=== PATIENT | male | born 1960 | race Caucasian/White ===

== ENCOUNTER → 2017-11-28 | Outpatient (CLI) | payer OTHER ==
[~2017-11-28] MED LIST: OMNIPAQUE 350 MG/ML, 100ML BOTTLE ONE
== END | disposition home or self-care (01) ==
LOC: RAD 14:08
PROVIDERS: ATTEND Internal Medicine Cardiovascular Disease
DX: I71.2 Thoracic aortic aneurysm, without rupture (principal)
CPT/HCPCS: 71275; Q9967

== ENCOUNTER 2017-12-15 09:14 | Day surgery (SDC) | payer OTHER ==
[~2017-12-15] VITALS: Ht 182.9 cm; Wt 79.1 kg
[2017-12-15] MEDS ORDERED: SODIUM CHLORIDE 0.9% 1,000 ML IV ONE (10:05)
[2017-12-15] MEDS ORDERED: DICL100T PO (10:08)
[2017-12-15] MEDS ORDERED: PROB500T22 PO (10:08)
[2017-12-15] MEDS ORDERED: HYDR-3240 PO (10:08)
[2017-12-15] MEDS ORDERED: VENL150T PO (10:08)
[2017-12-15 10:12] VITALS: BP 116/85
[2017-12-15] MEDS ORDERED: ASPIRIN 325 MG TABLET EC PO ONE (10:30)
[2017-12-15] MEDS ORDERED: TICAGRELOR 90 MG TABLET ONE (10:45)
[2017-12-15] MEDS ORDERED: BIVALIRUDIN 250 MG ONE (10:45)
[2017-12-15] MEDS ORDERED: VERAPAMIL 2.5 MG/ML, 2ML ONE (10:45)
[2017-12-15] MEDS ORDERED: MIDAZOLAM 1 MG/ML, 5ML ONE (10:45)
[2017-12-15] MEDS ORDERED: FENTANYL PF 100 MCG/2ML ONE (10:45)
[2017-12-15] MEDS ORDERED: HEPARIN 1,000 UNITS/ML, 10ML ONE (10:45)
== END 2017-12-15 13:54 | disposition home or self-care (01) ==
LOC: CACL 09:14
PROVIDERS: ATTEND Internal Medicine Cardiovascular Disease
DX: I25.10 Atherosclerotic heart disease of native coronary artery without angina pectoris (principal); I35.0 Nonrheumatic aortic (valve) stenosis; I71.9 Aortic aneurysm of unspecified site, without rupture; I10 Essential (primary) hypertension; Z88.0 Allergy status to penicillin
CPT/HCPCS: 93458; 99156; C1769; C1894; J1644; J2250; J3010; Q9967; J0583

== ENCOUNTER 2017-12-29 04:29 | Inpatient (IN) | payer OTHER ==
[2017-12-28 13:36] LABS: BASOPHILS # (AUTO) 0.16 x10^3/uL (0-0.1); BASOPHILS % (AUTO) 2 % (0-1); EOSINOPHILS # (AUTO) 0.93 x10^3/uL (0-0.4); EOSINOPHILS % (AUTO) 10 % (1-7); LYMPHOCYTES # (AUTO) 2.93 x10^3/uL (1-3.4); LYMPHOCYTES % (AUTO) 31 % (22-44); MD NO; MEAN CORPUSCULAR HEMOGLOBIN 33.9 pg (27.5-34.5); MEAN CORPUSCULAR HGB CONC 34.7 g/dL (33.2-36.2); MEAN CORPUSCULAR VOLUME 97.8 fL (81-97); MEAN PLATELET VOLUME 7.7 fL (7.4-10.4); MONOCYTES # (AUTO) 0.64 x10^3/uL (0.2-0.8); MONOCYTES % (AUTO) 7 % (2-9); NEUTROPHILS # (AUTO) 4.82 x10^3/uL (1.8-6.8); NEUTROPHILS % (AUTO) 51 % (42-75); PLATELET COUNT 346 x10^3/uL (130-400); RED BLOOD COUNT 4.04 x10^6/uL (4.38-5.82); RED CELL DISTRIBUTION WIDTH 13.1 % (9.4-14.8)
[2017-12-28 13:38] LABS: MICROSCOPIC NOT IND
[2017-12-28 13:49] LABS: ALANINE AMINOTRANSFERASE 26 U/L (12-78); ALBUMIN 3.5 g/dL (3.4-5.0); ANION GAP 7 mmol/L (5-15); CALCIUM 8.8 mg/dL (8.5-10.1); CHLORIDE 108 mmol/L (98-107); CREATININE 0.86 mg/dL (0.7-1.3)
[2017-12-28 13:51] LABS: ALKALINE PHOSPHATASE 134 U/L (45-117); BILIRUBIN,TOTAL 0.5 mg/dL (0.2-1.0); TOTAL PROTEIN 7.6 g/dL (6.4-8.2)
[2017-12-28 14:02] LABS: INTERNATIONAL NORMALIZED RATIO 0.93 (0.93-1.1); PROTHROMBIN TIME 9.7 Seconds (9.6-11.5)
[2017-12-28 14:29] LABS: HEMOGLOBIN A1C 5.4 % (4.2-6.3)
[~2017-12-29] VITALS: Ht 182.9 cm; Wt 78.6 kg
[~2017-12-29 04:29] MED LIST changes: +ACYC-114 PO; +ALPR-475 PO; +DICL100T PO; +HYDR-3240 PO; -OMNIPAQUE 350 MG/ML, 100ML BOTTLE ONE; +PROB500T22 PO; +VENL150T PO
[2017-12-29 05:02] VITALS: BP_SYST 116; BP_SYST 118; BP_DIAS 78
[2017-12-29] MEDS: SODIUM CHLORIDE FLUSH 10ML SYR IVF SCH ×3 (05:29→19:46)
[2017-12-29] MEDS: MUPIROCIN OINT 2%, 22GM TP SCH ×2 (05:29→20:29)
[2017-12-29] MEDS ORDERED: INSULIN LISPRO 100 UNITS/ML, PEN SQ-INSULIN SCH (05:30)
[2017-12-29] MEDS ORDERED: CHLORHEXIDINE 15 ML BOTTLE MM SCH ×2 (05:30)
[2017-12-29] MEDS ORDERED: DO NOT GIVE MC SCH (05:30)
[2017-12-29] MEDS ORDERED: CHLORHEXIDINE 15 ML UDC MM SCH (05:30)
[2017-12-29] MEDS ORDERED: MIDAZOLAM 10MG/2 ML ONE (07:12)
[2017-12-29] MEDS ORDERED: FENTANYL PF 250 MCG/5ML ONE ×6 (07:12→09:19)
[2017-12-29] MEDS ORDERED: CALCIUM CHLORIDE 10%, 10ML SYR ONE (07:14)
[2017-12-29] MEDS ORDERED: MANNITOL PMX 20% 500 ML IVPB PRN (07:30)
[2017-12-29] MEDS ORDERED: ALBUMIN HUMAN 5% 500 ML IV PRN (07:30)
[2017-12-29] MEDS ORDERED: POTASSIUM CHLORIDE 80 MEQ, SODIUM BICARBONATE 8.4% 10 MEQ, MAGNESIUM SULFATE 0.5 GM, LI... IV PRN (07:30)
[2017-12-29] MEDS ORDERED: EPINEPHRINE 2 MG in SODIUM CHLORIDE 0.9% 248 ML IV SCH (07:30)
[2017-12-29] MEDS ORDERED: REGULAR INSULIN 62.5 UNITS in SODIUM CHLORIDE 0.9% 249.375 ML IV PRN ×2 (07:30→11:27)
[2017-12-29] MEDS ORDERED: PHENYLEPHRINE 10 MG in SODIUM CHLORIDE 0.9% 249 ML IV PRN ×2 (07:30→11:27)
[2017-12-29] MEDS ORDERED: VANCOMYCIN 1,200 MG in SODIUM CHLORIDE 0.9% 250 ML IV PRN (07:30)
[2017-12-29] MEDS ORDERED: DEXMEDETOMIDINE 200 MCG in SODIUM CHLORIDE 0.9% 48 ML IV SCH (07:30)
[2017-12-29] MEDS ORDERED: KETAMINE 10 MG/ML, 20ML ONE (08:44)
[2017-12-29] MEDS: DOCUSATE 100 MG CAPSULE PO SCH ×2 (09:00→19:48)
[2017-12-29] MEDS ORDERED: ROCURONIUM 10MG/ML,5ML ONE ×4 (09:18)
[2017-12-29] MEDS ORDERED: VASOPRESSIN 20 UNIT/ML, 1ML ONE (09:27)
[2017-12-29] MEDS ORDERED: PROTAMINE SULFATE 10 MG/ML, 25ML ONE ×2 (09:28)
[2017-12-29] MEDS ORDERED: DEXMEDETOMIDINE 200 MCG in SODIUM CHLORIDE 0.9% 48 ML IV PRN (11:27)
[2017-12-29] MEDS ORDERED: SODIUM CHLORIDE 0.9% 1,000 ML IV PRN (11:27)
[2017-12-29] MEDS ORDERED: VASOPRESSIN 50 UNIT in SODIUM CHLORIDE 0.9% 247.5 ML IV PRN (11:27)
[2017-12-29] MEDS ORDERED: DOBUTAMINE 250 MG in SODIUM CHLORIDE 0.9% 230 ML IV PRN (11:27)
[2017-12-29] MEDS ORDERED: NITROGLYCERIN/D5W PMX 250 ML IV PRN (11:27)
[2017-12-29] MEDS ORDERED: GLUCAGON 1 MG IM PRN (11:30)
[2017-12-29] MEDS ORDERED: morphine SULFATE 10 MG/ML, 1ML IVPush PRN (11:30)
[2017-12-29] MEDS ORDERED: DEXTROSE 4 GM TAB.CHEW PO PRN (11:30)
[2017-12-29] MEDS ORDERED: ACETAMINOPHEN 325 MG TABLET PO PRN (11:30)
[2017-12-29] MEDS ORDERED: FENTANYL PF 100 MCG/2ML IVPush PRN (11:30)
[2017-12-29] MEDS ORDERED: ONDANSETRON 2MG/ML, 2ML IVPush PRN (11:30)
[2017-12-29] MEDS ORDERED: LACTATED RINGERS 1,000 ML IV PRN (11:30)
[2017-12-29] MEDS ORDERED: BISACODYL 5 MG EC TABLET PO PRN (11:30)
[2017-12-29] MEDS ORDERED: DEXTROSE 50%, 50ML SYRINGE IVPush PRN (11:30)
[2017-12-29] MEDS ORDERED: INSULIN REGULAR 100 UNITS/ML, 3ML VIAL IVPush PRN (11:30)
[2017-12-29] MEDS ORDERED: BISACODYL 10 MG SUPP PR PRN (11:30)
[2017-12-29] MEDS ORDERED: PROCHLORPERAZINE 5 MG/ML, 2ML IVPush PRN (11:30)
[2017-12-29] MEDS ORDERED: SODIUM BICARB 8.4%, 50ML SYRINGE IV PRN (11:30)
[2017-12-29] MEDS ORDERED: ACETAMINOPHEN 650 MG SUPP PR PRN (11:30)
[2017-12-29] MEDS ORDERED: EPINEPHRINE 2 MG in SODIUM CHLORIDE 0.9% 248 ML IV PRN (11:30)
[2017-12-29] MEDS ORDERED: SODIUM BICARBONATE 1 MEQ/ML, 50ML VIAL ONE (11:39)
[2017-12-29] MEDS ORDERED: LIDOCAINE 2% 100MG/5ML SYRINGE ONE (11:40)
[2017-12-29] MEDS ORDERED: methylPREDNISolone SOD SUCC 125 MG/2 ML ONE (11:40)
[2017-12-29] MEDS ORDERED: HEPARIN 1,000 UNITS/ML, 30ML ONE (11:40)
[2017-12-29] MEDS ORDERED: ALBUMIN HUMAN 25% 50 ML ONE (11:40)
[2017-12-29] MEDS: WARFARIN MODERAT DOSE PROTOCOL XX SCH (12:00)
[2017-12-29 12:07] LABS: GLUCOSE BY BLOOD GAS ANALYZER 106 mg/dL (70-110); HEMOGLOBIN BY BLOOD GAS ANALYZ 10.8 g/dL (14.0-18.0); POTASSIUM BY BLOOD GAS ANALYZR 4.1 mmol/L (3.6-5.5)
[2017-12-29 12:19] LABS: INTERNATIONAL NORMALIZED RATIO 1.25 (0.93-1.1); PROTHROMBIN TIME 12.9 Seconds (9.6-11.5)
[2017-12-29] MEDS: MAGNESIUM SULFATE 1 GM in SODIUM CHLORIDE 0.9% 50 ML IVPB SCH (12:26)
[2017-12-29] MEDS: KSCALE TO 4.5 IV SCH ×2 (12:26→18:12)
[2017-12-29] MEDS: INSULIN LISPRO 100 UNITS/ML, PEN SQ-INSULIN SCH ×2 (12:52→20:12)
[2017-12-29] MEDS ORDERED: ALBUTEROL SULFATE 2.5 MG/3 ML NPPB PRN (17:00)
[2017-12-29] MEDS: OXYcodone IR 5MG TABLET PO PRN (17:38)
[2017-12-29] MEDS: HYDROcodone/APAP 10/325 MG TABLET PO PRN ×2 (19:42→23:39)
[2017-12-29] MEDS: MUPIROCIN OINT 2%, 22GM NAS SCH (19:45)
[2017-12-29] MEDS: VANCOMYCIN 1,200 MG in SODIUM CHLORIDE 0.9% 250 ML IVPB SCH (19:46)
[2017-12-30] MEDS: KSCALE TO 4.5 IV SCH ×2 (00:12→05:33)
[2017-12-30] MEDS: HYDROcodone/APAP 10/325 MG TABLET PO PRN ×3 (04:08→21:16)
[2017-12-30 04:46] LABS: BASOPHILS % (AUTO) 1 % (0-1); EOSINOPHILS % (AUTO) 0 % (1-7); INTERNATIONAL NORMALIZED RATIO 0.99 (0.93-1.1); LYMPHOCYTES # (AUTO) 1.53 x10^3/uL (1-3.4); LYMPHOCYTES % (AUTO) 13 % (22-44); MD NO; MEAN CORPUSCULAR HEMOGLOBIN 33.4 pg (27.5-34.5); MEAN CORPUSCULAR HGB CONC 34.6 g/dL (33.2-36.2); MEAN CORPUSCULAR VOLUME 96.6 fL (81-97); MEAN PLATELET VOLUME 7.8 fL (7.4-10.4); MONOCYTES % (AUTO) 6 % (2-9); NEUTROPHILS # (AUTO) 9.08 x10^3/uL (1.8-6.8); NEUTROPHILS % (AUTO) 80 % (42-75); PLATELET COUNT 163 x10^3/uL (130-400); PROTHROMBIN TIME 10.3 Seconds (9.6-11.5); RED BLOOD COUNT 2.81 x10^6/uL (4.38-5.82); RED CELL DISTRIBUTION WIDTH 13.1 % (9.4-14.8)
[2017-12-30 04:49] LABS: ALBUMIN 2.7 g/dL (3.4-5.0); ANION GAP 7 mmol/L (5-15); CALCIUM 7.4 mg/dL (8.5-10.1); CHLORIDE 114 mmol/L (98-107); CREATININE 0.69 mg/dL (0.7-1.3)
[2017-12-30] MEDS: OXYcodone IR 5MG TABLET PO PRN ×2 (07:07→09:59)
[2017-12-30] MEDS: INSULIN LISPRO 100 UNITS/ML, PEN SQ-INSULIN SCH ×4 (07:12→21:00)
[2017-12-30] MEDS: MUPIROCIN OINT 2%, 22GM NAS SCH ×2 (07:52→21:27)
[2017-12-30] MEDS: WARFARIN BIOPROSTHETIC VALVE PROTOCOL 2-3 XX SCH (07:52)
[2017-12-30] MEDS: VANCOMYCIN 1,200 MG in SODIUM CHLORIDE 0.9% 250 ML IVPB SCH (07:52)
[2017-12-30] MEDS: MUPIROCIN OINT 2%, 22GM TP SCH ×2 (07:52→21:00)
[2017-12-30] MEDS: DOCUSATE 100 MG CAPSULE PO SCH ×2 (08:13→21:19)
[2017-12-30] MEDS: ASPIRIN 81 MG TABLET EC PO SCH (08:13)
[2017-12-30] MEDS ORDERED: VENLAFAXINE 75 MG CAP ER ONE (08:15)
[2017-12-30] MEDS ORDERED: KETOROLAC 30 MG/1 ML IVPush PRN (08:30)
[2017-12-30] MEDS ORDERED: MAGNESIUM HYDROXIDE 8%, 30ML UDC PO PRN (08:30)
[2017-12-30] MEDS: VENLAFAXINE 75 MG CAP ER PO SCH ×2 (10:01→21:19)
[2017-12-30] MEDS: WARFARIN MODERAT DOSE PROTOCOL XX SCH (12:00)
[2017-12-30 12:56] VITALS: BP 119/70
[2017-12-30] MEDS: SODIUM CHLORIDE FLUSH 10ML SYR IVF SCH ×3 (13:00→21:18)
[2017-12-30] MEDS: MAGNESIUM SULFATE 1 GM in SODIUM CHLORIDE 0.9% 50 ML IVPB SCH (13:22)
[2017-12-30 15:14] VITALS: BP 145/78
[2017-12-30] MEDS ORDERED: WARFARIN 7.5 MG TABLET PO-COUM SCH (18:00)
[2017-12-30 18:50] VITALS: BP 124/72
[2017-12-31 01:16] VITALS: BP 142/75
[2017-12-31] MEDS: HYDROcodone/APAP 10/325 MG TABLET PO PRN ×4 (03:51→21:09)
[2017-12-31 05:16] LABS: INTERNATIONAL NORMALIZED RATIO 1.09 (0.93-1.1); PROTHROMBIN TIME 11.2 Seconds (9.6-11.5)
[2017-12-31 05:18] LABS: ANION GAP 6 mmol/L (5-15); CALCIUM 7.6 mg/dL (8.5-10.1); CHLORIDE 108 mmol/L (98-107)
[2017-12-31 05:28] LABS: BASOPHILS # (AUTO) 0.06 x10^3/uL (0-0.1); BASOPHILS % (AUTO) 1 % (0-1); EOSINOPHILS # (AUTO) 0.15 x10^3/uL (0-0.4); EOSINOPHILS % (AUTO) 2 % (1-7); LYMPHOCYTES # (AUTO) 1.33 x10^3/uL (1-3.4); LYMPHOCYTES % (AUTO) 16 % (22-44); MD NO; MEAN CORPUSCULAR HEMOGLOBIN 34.1 pg (27.5-34.5); MEAN CORPUSCULAR HGB CONC 35.2 g/dL (33.2-36.2); MEAN PLATELET VOLUME 8.1 fL (7.4-10.4); MONOCYTES # (AUTO) 0.62 x10^3/uL (0.2-0.8); MONOCYTES % (AUTO) 7 % (2-9); NEUTROPHILS # (AUTO) 6.43 x10^3/uL (1.8-6.8); NEUTROPHILS % (AUTO) 75 % (42-75); PLATELET COUNT 127 x10^3/uL (130-400); RED BLOOD COUNT 2.62 x10^6/uL (4.38-5.82); RED CELL DISTRIBUTION WIDTH 13.1 % (9.4-14.8)
[2017-12-31] MEDS: INSULIN LISPRO 100 UNITS/ML, PEN SQ-INSULIN SCH ×4 (07:00→21:00)
[2017-12-31 07:20] VITALS: BP 119/69
[2017-12-31] MEDS: FUROSEMIDE 20 MG/2 ML IV SCH (08:21)
[2017-12-31] MEDS: VENLAFAXINE 75 MG CAP ER PO SCH ×2 (08:22→21:09)
[2017-12-31] MEDS: LISINOPRIL 5 MG TABLET PO SCH (08:22)
[2017-12-31] MEDS: POTASSIUM CHLORIDE 10 MEQ TABLET.ER PO SCH (08:22)
[2017-12-31] MEDS: DOCUSATE 100 MG CAPSULE PO SCH ×2 (08:22→21:09)
[2017-12-31] MEDS: ASPIRIN 81 MG TABLET EC PO SCH (08:23)
[2017-12-31] MEDS: MUPIROCIN OINT 2%, 22GM NAS SCH ×2 (08:23→21:08)
[2017-12-31] MEDS: MUPIROCIN OINT 2%, 22GM TP SCH ×2 (09:00→21:00)
[2017-12-31] MEDS: SODIUM CHLORIDE FLUSH 10ML SYR IVF SCH ×4 (09:00→21:09)
[2017-12-31] MEDS: WARFARIN BIOPROSTHETIC VALVE PROTOCOL 2-3 XX SCH (09:00)
[2017-12-31] MEDS: WARFARIN MODERAT DOSE PROTOCOL XX SCH (12:00)
[2017-12-31] MEDS: MAGNESIUM SULFATE 1 GM in SODIUM CHLORIDE 0.9% 50 ML IVPB SCH (13:03)
[2017-12-31 13:40] VITALS: BP 117/70
[2017-12-31] MEDS ORDERED: WARFARIN 7.5 MG TABLET PO-COUM SCH (18:00)
[2017-12-31 19:12] VITALS: BP 116/63
[2017-12-31 23:48] VITALS: BP 126/68
[2018-01-01] MEDS: HYDROcodone/APAP 10/325 MG TABLET PO PRN ×3 (04:18→19:38)
[2018-01-01 04:56] LABS: BASOPHILS # (AUTO) 0.05 x10^3/uL (0-0.1); BASOPHILS % (AUTO) 1 % (0-1); EOSINOPHILS # (AUTO) 0.39 x10^3/uL (0-0.4); EOSINOPHILS % (AUTO) 5 % (1-7); LYMPHOCYTES # (AUTO) 1.66 x10^3/uL (1-3.4); LYMPHOCYTES % (AUTO) 20 % (22-44); MD NO; MEAN CORPUSCULAR HEMOGLOBIN 34.7 pg (27.5-34.5); MEAN CORPUSCULAR HGB CONC 35.6 g/dL (33.2-36.2); MEAN CORPUSCULAR VOLUME 97.4 fL (81-97); MEAN PLATELET VOLUME 7.7 fL (7.4-10.4); MONOCYTES # (AUTO) 0.61 x10^3/uL (0.2-0.8); MONOCYTES % (AUTO) 7 % (2-9); NEUTROPHILS % (AUTO) 68 % (42-75); PLATELET COUNT 140 x10^3/uL (130-400); RED BLOOD COUNT 2.55 x10^6/uL (4.38-5.82); RED CELL DISTRIBUTION WIDTH 12.9 % (9.4-14.8)
[2018-01-01 05:00] LABS: INTERNATIONAL NORMALIZED RATIO 1.41 (0.93-1.1); PROTHROMBIN TIME 14.4 Seconds (9.6-11.5)
[2018-01-01 05:02] LABS: ANION GAP 5 mmol/L (5-15); CALCIUM 7.8 mg/dL (8.5-10.1); CHLORIDE 106 mmol/L (98-107)
[2018-01-01] MEDS: INSULIN LISPRO 100 UNITS/ML, PEN SQ-INSULIN SCH (07:00)
[2018-01-01 07:30] VITALS: BP 123/68
[2018-01-01] MEDS: WARFARIN BIOPROSTHETIC VALVE PROTOCOL 2-3 XX SCH (07:31)
[2018-01-01] MEDS: MUPIROCIN OINT 2%, 22GM TP SCH ×2 (07:31→21:00)
[2018-01-01] MEDS: ASPIRIN 81 MG TABLET EC PO SCH (08:01)
[2018-01-01] MEDS: VENLAFAXINE 75 MG CAP ER PO SCH ×2 (08:01→22:33)
[2018-01-01] MEDS: MUPIROCIN OINT 2%, 22GM NAS SCH ×2 (08:01→22:33)
[2018-01-01] MEDS: FUROSEMIDE 20 MG/2 ML IV SCH (08:01)
[2018-01-01] MEDS: LISINOPRIL 5 MG TABLET PO SCH (08:01)
[2018-01-01] MEDS: POTASSIUM CHLORIDE 10 MEQ TABLET.ER PO SCH (08:02)
[2018-01-01] MEDS: DOCUSATE 100 MG CAPSULE PO SCH ×2 (08:02→21:00)
[2018-01-01] MEDS: SODIUM CHLORIDE FLUSH 10ML SYR IVF SCH ×4 (08:03→22:34)
[2018-01-01] MEDS ORDERED: POTASSIUM CHLORIDE 20 MEQ TAB.ER.PRT PO ONE (09:00)
[2018-01-01] MEDS: WARFARIN MODERAT DOSE PROTOCOL XX SCH (12:00)
[2018-01-01 14:30] VITALS: BP 132/70
[2018-01-01] MEDS ORDERED: WARFARIN 5 MG TABLET PO-COUM ONE (18:00)
[2018-01-01] MEDS ORDERED: DIPHENHYDRAMINE 50 MG/ML, 1ML ONE (18:52)
[2018-01-01 19:14] VITALS: BP 124/68
[2018-01-02 01:26] VITALS: BP 113/66
[2018-01-02] MEDS: HYDROcodone/APAP 10/325 MG TABLET PO PRN ×2 (04:23→09:41)
[2018-01-02 05:09] LABS: INTERNATIONAL NORMALIZED RATIO 1.93 (0.93-1.1); PROTHROMBIN TIME 19.6 Seconds (9.6-11.5)
[2018-01-02 05:11] LABS: ANION GAP 6 mmol/L (5-15); CHLORIDE 105 mmol/L (98-107)
[2018-01-02 05:12] LABS: BASOPHILS # (AUTO) 0.05 x10^3/uL (0-0.1); BASOPHILS % (AUTO) 1 % (0-1); CREATININE 0.51 mg/dL (0.7-1.3); EOSINOPHILS # (AUTO) 0.61 x10^3/uL (0-0.4); EOSINOPHILS % (AUTO) 9 % (1-7); LYMPHOCYTES # (AUTO) 1.43 x10^3/uL (1-3.4); LYMPHOCYTES % (AUTO) 20 % (22-44); MD NO; MEAN CORPUSCULAR HEMOGLOBIN 33.6 pg (27.5-34.5); MEAN CORPUSCULAR HGB CONC 34.8 g/dL (33.2-36.2); MEAN CORPUSCULAR VOLUME 96.7 fL (81-97); MEAN PLATELET VOLUME 7.8 fL (7.4-10.4); MONOCYTES # (AUTO) 0.54 x10^3/uL (0.2-0.8); MONOCYTES % (AUTO) 8 % (2-9); NEUTROPHILS # (AUTO) 4.46 x10^3/uL (1.8-6.8); NEUTROPHILS % (AUTO) 63 % (42-75); PLATELET COUNT 168 x10^3/uL (130-400); RED BLOOD COUNT 2.71 x10^6/uL (4.38-5.82); RED CELL DISTRIBUTION WIDTH 12.8 % (9.4-14.8)
[2018-01-02 06:50] VITALS: BP 117/70
[2018-01-02] MEDS: WARFARIN BIOPROSTHETIC VALVE PROTOCOL 2-3 XX SCH (09:00)
[2018-01-02] MEDS: DOCUSATE 100 MG CAPSULE PO SCH (09:04)
[2018-01-02] MEDS: WARFARIN MODERAT DOSE PROTOCOL XX SCH (09:06)
[2018-01-02] MEDS: LISINOPRIL 5 MG TABLET PO SCH (09:42)
[2018-01-02] MEDS: VENLAFAXINE 75 MG CAP ER PO SCH ×2 (09:42→20:49)
[2018-01-02] MEDS: ASPIRIN 81 MG TABLET EC PO SCH (09:43)
[2018-01-02] MEDS: POTASSIUM CHLORIDE 10 MEQ TABLET.ER PO SCH (09:43)
[2018-01-02] MEDS: SODIUM CHLORIDE FLUSH 10ML SYR IVF SCH ×2 (09:44→20:49)
[2018-01-02] MEDS: MUPIROCIN OINT 2%, 22GM NAS SCH ×2 (09:52→20:49)
[2018-01-02] MEDS: FUROSEMIDE 20 MG TABLET PO SCH (09:55)
[2018-01-02] MEDS: HYDROcodone/APAP 5/325 TABLET PO PRN (14:12)
[2018-01-02 14:24] VITALS: BP 100/62
[2018-01-02] MEDS ORDERED: WARFARIN 5 MG TABLET PO-COUM ONE (18:00)
[2018-01-02 18:54] VITALS: BP 103/65
[2018-01-03 01:46] VITALS: BP 118/73
[2018-01-03] MEDS: HYDROcodone/APAP 5/325 TABLET PO PRN ×3 (02:11→11:17)
[2018-01-03 05:58] LABS: INTERNATIONAL NORMALIZED RATIO 2.3 (0.93-1.1); PROTHROMBIN TIME 23.5 Seconds (9.6-11.5)
[2018-01-03 06:01] LABS: BASOPHILS # (AUTO) 0.08 x10^3/uL (0-0.1); BASOPHILS % (AUTO) 1 % (0-1); EOSINOPHILS # (AUTO) 0.71 x10^3/uL (0-0.4); EOSINOPHILS % (AUTO) 10 % (1-7); LYMPHOCYTES # (AUTO) 1.58 x10^3/uL (1-3.4); LYMPHOCYTES % (AUTO) 22 % (22-44); MD NO; MEAN CORPUSCULAR HEMOGLOBIN 33.5 pg (27.5-34.5); MEAN CORPUSCULAR HGB CONC 35.2 g/dL (33.2-36.2); MEAN CORPUSCULAR VOLUME 95.2 fL (81-97); MEAN PLATELET VOLUME 7.4 fL (7.4-10.4); MONOCYTES # (AUTO) 0.64 x10^3/uL (0.2-0.8); MONOCYTES % (AUTO) 9 % (2-9); NEUTROPHILS # (AUTO) 4.02 x10^3/uL (1.8-6.8); NEUTROPHILS % (AUTO) 57 % (42-75); PLATELET COUNT 235 x10^3/uL (130-400); RED BLOOD COUNT 2.94 x10^6/uL (4.38-5.82); RED CELL DISTRIBUTION WIDTH 13.2 % (9.4-14.8)
[2018-01-03 06:03] LABS: CHLORIDE 106 mmol/L (98-107)
[2018-01-03 06:07] LABS: ANION GAP 9 mmol/L (5-15); CALCIUM 8.6 mg/dL (8.5-10.1); CREATININE 0.59 mg/dL (0.7-1.3)
[2018-01-03 06:39] VITALS: BP 117/71
[2018-01-03] MEDS ORDERED: FURO20TA3 PO (07:44)
[2018-01-03] MEDS ORDERED: POTA10TA5 PO (07:44)
[2018-01-03] MEDS ORDERED: WARF5TAB PO (07:44)
[2018-01-03] MEDS ORDERED: LISI5TAB7 PO (07:44)
[2018-01-03] MEDS ORDERED: ASPI-621 PO (07:44)
[2018-01-03] MEDS: VENLAFAXINE 75 MG CAP ER PO SCH (09:18)
[2018-01-03] MEDS: DOCUSATE 100 MG CAPSULE PO SCH (09:18)
[2018-01-03] MEDS: LISINOPRIL 5 MG TABLET PO SCH (09:18)
[2018-01-03] MEDS: POTASSIUM CHLORIDE 10 MEQ TABLET.ER PO SCH (09:18)
[2018-01-03] MEDS: FUROSEMIDE 20 MG TABLET PO SCH (09:19)
[2018-01-03] MEDS: WARFARIN MODERAT DOSE PROTOCOL XX SCH (09:19)
[2018-01-03] MEDS ORDERED: HYDROcodone/APAP 5/325 TABLET ONE (09:24)
[2018-01-03] MEDS: SODIUM CHLORIDE FLUSH 10ML SYR IVF SCH (09:26)
[2018-01-03] MEDS ORDERED: HYDR-3240 PO (10:08)
[2018-01-03] MEDS ORDERED: WARFARIN 5 MG TABLET PO-COUM ONE (18:00)
== END 2018-01-03 12:00 | disposition home or self-care (01) | DRG 219 ==
LOC: 5SO 04:29 → CSU 08:43 → 5SO 12-30 12:39 → DCLOUNGE 01-03 11:37
PROVIDERS: ADMIT Thoracic Surgery (Cardiothoracic Vascular Surgery); ATTEND Thoracic Surgery (Cardiothoracic Vascular Surgery)
PROC: 02UX08Z Supplement Thoracic Aorta, Ascending/Arch with Zooplastic Tissue, Open Approach (ICD-10-PCS; 2017-12-29)
PROC: B24BZZ4 Ultrasonography of Heart with Aorta, Transesophageal (ICD-10-PCS; 2017-12-29)
PROC: 5A1221Z Performance of Cardiac Output, Continuous (ICD-10-PCS; 2017-12-29)
PROC: 02RF08Z Replacement of Aortic Valve with Zooplastic Tissue, Open Approach (ICD-10-PCS; principal; 2017-12-29 08:00)
DX: I35.0 Nonrheumatic aortic (valve) stenosis (principal); J96.00 Acute respiratory failure, unspecified whether with hypoxia or hypercapnia; I08.0 Rheumatic disorders of both mitral and aortic valves; I71.2 Thoracic aortic aneurysm, without rupture; E78.5 Hyperlipidemia, unspecified; I70.0 Atherosclerosis of aorta; M10.9 Gout, unspecified; F12.90 Cannabis use, unspecified, uncomplicated; I10 Essential (primary) hypertension; I95.9 Hypotension, unspecified; F41.9 Anxiety disorder, unspecified; Z88.0 Allergy status to penicillin; Z86.79 Personal history of other diseases of the circulatory system
CPT/HCPCS: 36415; 36600; 71045; 71046; 80048; 80053; 81003; 82040; 82330; 82800; 82803; 82810; 82947; 82962; 83036; 83735; 84132; 84295; 85014; 85018; 85025; 85049; 85347; 85610; 85730; 86850; 86900; 86923; 87081; 88304; 88305; 88311; 93005; 93312; 93321; 93325; 93880; 94002; 94150; C1768; G0378; J1644; J1815; J1885; J2250; J2720; J3010; J3370; J3475; J3480; J3490; P9045; P9047; C1751; C1760; C1781; J0171; J1940; J2270; J2370; J2930; J7030; J7050

== ENCOUNTER → 2018-01-19 | Outpatient (CLI) | payer OTHER ==
[~2018-01-19] MED LIST changes: +ASPI-621 PO; +FURO20TA3 PO; +LISI5TAB7 PO; +POTA10TA5 PO; +WARF5TAB PO
== END | disposition home or self-care (01) ==
LOC: CFH 13:55
PROVIDERS: ATTEND Internal Medicine Cardiovascular Disease
DX: I35.0 Nonrheumatic aortic (valve) stenosis (principal); Z95.2 Presence of prosthetic heart valve
CPT/HCPCS: 93306